=== PATIENT | female | born 1960 | race Caucasian/White ===

== ENCOUNTER → 2018-04-23 | Outpatient (CLI) | payer BC ==
[~2018-04-23] MED LIST: ASPIR-LOW81 MG PO; FISH OIL300 MG PO; IOPAMIDOL 370 MG/ML 200 ML INFUS..BTL INJ ONE; PROBIOTIC COMP1 EACH; SIMVASTATIN10 MG; SIMVASTATIN20 MG PO; SODIUM CHLORIDE 0.9% 100 ML ONE; Z RYTHMOL PO; [UNRECOGNIZED DRUG - OTHER] TD
--- NOTE | 2018-04-25 10:10 | Diagnostic Imaging Report ---
CTA brain and neck with and without contrast History:Amaurosis fugax, Comparison studies:None Technique: Axial CT images of the brain and neck were obtained with and without contrast. Coronal and sagittal images reconstructed from the axial data. 3-D reconstructions were created. Findings: Head CT without contrast: Scalp/skull: No abnormalities. No fractures, blastic or lytic lesions. Extra-axial spaces: No masses. No fluid collections. Brain sulci: Appropriate for age. Ventricles: Normal in size and configuration. No hydrocephalus. Parenchyma: No abnormal densities. No masses, hemorrhage, acute or chronic cortical vascular insults. Sellar/suprasellar region: No abnormalities Craniocervical junction: Patent foramen magnum. No Chiari one malformation. Cervical and intracranial CTA's: Aortic arch and major vessels: Patent. Two-vessel aortic arch. Mild atherosclerotic disease at the origin of the left subclavian artery. Common carotid arteries: Patent. No abnormalities. Right internal carotid artery: Mildly stenosing atherosclerotic disease of the right carotid bulb/proximal internal carotid artery and right carotid siphon. Otherwise patent. No abnormalities in the A1 and M1 segments Left internal carotid artery: Mildly stenosing atherosclerotic disease of the right carotid bulb/proximal internal carotid artery and right carotid siphon. Otherwise patent. No abnormalities in the A1 and M1 segments Vertebral arteries: Patent. No abnormalities. Basilar artery: Patent. No abnormalities. Posterior cerebral arteries: Patent but difficult to assess due to venous contamination. IMPRESSION: Cervical CTA: 1. Non-stenosing calcified plaques at the carotid bifurcations. 2. Otherwise, no abnormalities. Intracranial CTA: 1. Mildly stenosing calcified plaques in the carotid siphons. 2. Otherwise, no abnormalities. Signed by: Dr. Parish Ken M.D. on 04/25/2018 12:49 PM
== END ==
LOC: CT 07:41
PROVIDERS: ATTEND Psychiatry & Neurology Neurology
DX: G45.3 Amaurosis fugax (principal); R29.818 Other symptoms and signs involving the nervous system
CPT/HCPCS: 70450; 70496; 70498; J7050; Q9967

== ENCOUNTER 2024-02-24 04:52 | Emergency (ER) | payer BC ==
[~2024-02-24] VITALS: Ht 160 cm; Wt 59.4 kg
[~2024-02-24 04:52] MED LIST changes: +CEFDINIR300 MG PO; +IBUPROFEN200 MG PO; -IOPAMIDOL 370 MG/ML 200 ML INFUS..BTL INJ ONE; -SODIUM CHLORIDE 0.9% 100 ML ONE; +TYLENOL325 MG PO
[2024-02-24 05:44] LABS: BASOPHILS % 0.8 % (0.0-1.0); EOSINOPHILS % 1.1 % (0.0-6.0); HEMOGLOBIN 14.8 g/dL (12.0-16.0); LYMPHOCYTES # (AUTO) 1.2 (1.0-3.2); LYMPHOCYTES % 33.9 % (18.0-39.1); MEAN CORPUSCULAR HEMOGLOBIN 32.4 pg (28-32); MEAN CORPUSCULAR HGB CONC 34.4 g/dL (31-35); MEAN CORPUSCULAR VOLUME 94.1 fL (81-99); MONOCYTES # (AUTO) 0.3 (0.2-0.8); MONOCYTES % 9.1 % (4.4-11.3); NEUTROPHILS % 54.8 % (38.7-80.0); PLATELET COUNT 193 x10e3/uL (140-360); RED BLOOD COUNT 4.57 x10e6/uL (3.6-5.1); RED CELL DISTRIBUTION WIDTH 14.8 % (11.7-14.4); WHITE BLOOD COUNT 3.63 x10e3/uL (4.8-10.8)
[2024-02-24 06:20] LABS: CREATINE KINASE 64 IU/L (29-168)
[2024-02-24 06:53] LABS: TROPONIN I < 0.05 ng/mL (0.0-0.40)
[2024-02-24 07:19] LABS: ALBUMIN 4.1 g/dL (3.5-5.0); ALBUMIN/GLOBULIN RATIO 1.5 (0.8-2.0); ANION GAP 13.7 mmol/L (8-16); BILIRUBIN,TOTAL 0.5 mg/dL (0.2-1.2); CALCIUM 9.7 mg/dL (8.4-10.2); CREATININE, SERUM 0.78 mg/dL (0.57-1.11); POTASSIUM 3.7 mmol/L (3.5-5.1); TOTAL PROTEIN 6.9 g/dL (6.5-8.1)
[2024-02-24] MEDS ORDERED: SODIUM CHLORIDE 0.9% 100 ML ONE (07:43)
[2024-02-24] MEDS ORDERED: IOPAMIDOL 370 MG/ML 100 ML INFUS..BTL INJ ONE ×2 (07:43→13:53)
[2024-02-24 09:58] VITALS: O2SAT 100
[2024-02-24] MEDS ORDERED: SODIUM CHLORIDE 0.9% INJ 100 ML BAG ONE (13:53)
== END 2024-02-24 10:35 | disposition home or self-care (01) ==
LOC: ER 04:57
DX: R42 Dizziness and giddiness (principal); H43.392 Other vitreous opacities, left eye; E78.5 Hyperlipidemia, unspecified; Z11.52 Encounter for screening for COVID-19; Z86.79 Personal history of other diseases of the circulatory system
CPT/HCPCS: 36415; 70496; 70498; 71046; 80053; 82550; 83690; 83880; 84484; 85025; 93005; 99284; J7050; Q9967; U0002